=== PATIENT | female | born 1965 | race Caucasian/White ===

== ENCOUNTER 2017-08-16 05:44 | Observation (INO) | payer BC ==
[2017-08-16] MEDS ORDERED: LACTATED RINGER'S 1,000 ML IV* (06:30)
[2017-08-16] MEDS ORDERED: CEFAZOLIN 2 GM/50 ML (PMX) 50 ML IVPB (06:30)
[2017-08-16] MEDS ORDERED: GELATIN SIZE 100 SPONGE (06:41)
[2017-08-16] MEDS ORDERED: BUPIVACAINE 0.25%/EPI (MDV) 50 ML VIAL INJ (07:00)
[2017-08-16] MEDS ORDERED: MEPERIDINE 100 MG INJ (07:31)
[2017-08-16] MEDS ORDERED: SUCCINYLCHOLINE CHLORIDE 100 MG/5 ML SYG IV (07:31)
[2017-08-16] MEDS ORDERED: NEOSTIGMINE 3 MG/3 ML SYRINGE ×2 (07:31→08:07)
[2017-08-16] MEDS ORDERED: LIDOCAINE 2% (SDV) 5 ML INJ (07:31)
[2017-08-16] MEDS ORDERED: PROPOFOL 20 ML (07:31)
[2017-08-16] MEDS ORDERED: GLYCOPYRROLATE 0.4 MG INJ ×2 (07:31→08:07)
[2017-08-16] MEDS ORDERED: ROCURONIUM 50 MG INJ (07:31)
[2017-08-16] MEDS: POLYMYXIN/BACITRACIN 1L IRRIG (08:00)
[2017-08-16] MEDS ORDERED: CEFAZOLIN 1 GM INJ (08:07)
[2017-08-16] MEDS ORDERED: METOCLOPRAMIDE 10 MG INJ (08:07)
[2017-08-16] MEDS ORDERED: LABETALOL HCL 20MG INJ (08:07)
[2017-08-16] MEDS ORDERED: ONDANSETRON 4 MG INJ (08:07)
[2017-08-16] MEDS: THROMBIN 5000 UNIT VIAL (08:44)
[2017-08-16] MEDS: BETAMET NA PHOS/AC(6 MG/ML) 5ML INJ (09:28)
[2017-08-16] MEDS ORDERED: HYDROCODONE/APAP (5/325) TAB PO ×2 (10:30)
[2017-08-16] MEDS ORDERED: METOCLOPRAMIDE 10 MG INJ IV (10:30)
[2017-08-16] MEDS ORDERED: MEPERIDINE 25 MG INJ IV (10:30)
[2017-08-16] MEDS ORDERED: NACL 0.9% 3 ML SYG IV (10:30)
[2017-08-16] MEDS ORDERED: LABETALOL HCL 20MG INJ IV (10:30)
[2017-08-16] MEDS ORDERED: MIDAZOLAM 1 MG/ML 2 ML INJ IV (10:30)
[2017-08-16] MEDS ORDERED: ACETAMINOPHEN 325 MG TAB PO (10:30)
[2017-08-16] MEDS ORDERED: PROCHLORPERAZINE 10 MG TAB PO (10:30)
[2017-08-16] MEDS ORDERED: NALOXONE (0.4 MG/ML) INJ IV (10:30)
[2017-08-16] MEDS ORDERED: FENTAnyl 50 MCG/ML VIAL IV ×3 (10:30)
[2017-08-16] MEDS ORDERED: hydrALAzine 20 MG INJ IV (10:30)
[2017-08-16] MEDS ORDERED: ONDANSETRON 4 MG INJ IV (10:30)
[2017-08-16] MEDS ORDERED: HYDROmorphONE (0.2 MG/ML) 10ML SYG IV ×3 (10:30→10:33)
[2017-08-16] MEDS ORDERED: EPHEDrine SULFATE 50 MG/5 ML SYG IV (10:30)
[2017-08-16] MEDS ORDERED: DIPHENHYDRAMINE 50 MG INJ IV (10:30)
[2017-08-16] MEDS ORDERED: OXYCODONE/ACETAMINOPHEN (5/325) TAB PO (10:30)
[2017-08-16] MEDS: ONDANSETRON 4 MG INJ IV (10:40)
[2017-08-16] MEDS: HYDROmorphONE (0.2 MG/ML) 10ML SYG IV ×2 (10:41→10:43)
[2017-08-16] MEDS: OXYCODONE/ACETAMINOPHEN (5/325) TAB PO (10:55)
== END 2017-08-16 11:12 | disposition home or self-care (01) ==
LOC: SDS 05:44 → REC 10:04
DX: M51.17 Intervertebral disc disorders with radiculopathy, lumbosacral region (principal)
CPT/HCPCS: 63030; 72100; 84703; 97161